=== PATIENT | female | born 1945 | race Caucasian/White ===

== ENCOUNTER 2016-11-07 14:30 | Inpatient (IN) | payer MEDICARE, BC ==
[~2016-11-07] VITALS: Ht 160 cm; Wt 90.9 kg
[~2016-11-07 14:30] MED LIST: AMLO5TAB96 PO; ASPI81TA82 PO; BIOTCAP OR; CQ10 PO; FOLI1TAB PO; HUMUINJ5 SC; LEVO88TA2 PO; LISI10TA PO; NEUR600T PO; OMEP20TA PO; PRAV80
--- NOTE | 2016-11-07 14:55 | PD ---
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 She denies hitting her head or had any loss of consciousness. She denies any chest pains or trouble breathing or other injuries. Modifying Factors: None Associated Signs & Symptoms: Left shoulder and arm, left hip pains after fall Risk Factors: None PFSH Past Medical History Anxiety: Yes Cancer: No Cardiovascular Problems: Yes Diabetes: Yes Endocrine: Yes Gastrointestinal Disorders: Yes GERD: Yes Genitourinary: No Headaches: Yes Hepatitis: No Hiatal Hernia: No Hypertension: Yes Immune Disorder: No Implanted Vascular Access Dvce: Yes Musculoskeletal: Yes Neurologic: Yes Psychiatric: Yes Reproductive: No Respiratory: No Thyroid Disease: Yes ?: Not Past Surgical History Abdominal Surgery: Yes (LAP STEFAN/ LIVER BX, "DOUBLE BALLOON" ENDOSCOPIC ABLATION GI BLEEDERS) Body Medical Devices: CERVICAL HARDWARE, PERMANENT RODS IN LOWER JAW AND NECK Gynecologic Surgery: Yes (D & C) Neurologic Surgery: Yes (ANT. CERVICAL FUS.) Pacemaker: No Other Surgery: Yes Social History Alcohol Use: No Tobacco Use: Yes (12 YEARS AGO) Substance Use: No Allergies-Medications (Allergen,Severity, Reaction): Coded Allergies: Metformin (Verified Allergy, Intermediate, itching, 11/07/16) Reported Meds & Prescriptions Reported Meds & Active Scripts Active Reported [Cq10] PO DAILY Gabapentin 600 Mg Tab 600 Mg PO TID Aspir-81 (Aspirin) 81 Mg Tab 81 Mg PO DAILY Biotin 5000 (Biotin) Cap 1 OR DAILY Lisinopril/Hctz 20/12.5 (HCTZ/Lisinopril) Tab 1 Tab PO DAILY Pravachol 80 Mg Tab (Pravastatin Sod) 80 Mg Tab 80 Mg .XX DAILY Norvasc (Amlodipine Besylate) 5 Mg Tab 5 Mg PO DAILY Omeprazole 20 Mg Tab 20 Mg PO DAILY Folate (Folic Acid) 1 Mg Tab 1 Mg PO DAILY Levothyroxine Sodium (Generic) (Levothyroxine Sodium) 88 Mcg Tab 88 Mcg PO DAILY Humulin R 500 Units/1 ml CAUTION (Insulin Human Regular) 500 Units/1 Ml Inj 1 Units SC ACHS SLIDING SCALE Review of Systems Except as stated in HPI: all other systems reviewed are Neg Physical Exam Narrative GENERAL: Well-developed elderly white female patient currently in moderate distress. Awake and oriented 3. SKIN: Focused skin assessment warm/dry. HEAD: Atraumatic. Normocephalic. EYES: Pupils equal and round. No scleral icterus. No injection or drainage. ENT: No nasal bleeding or discharge. Mucous membranes pink and moist. NECK: Trachea midline. No JVD. Supple. CARDIOVASCULAR: Regular rate and rhythm. No murmur appreciated. RESPIRATORY: No accessory muscle use. Clear to auscultation. Breath sounds equal bilaterally. CHEST: Nontender throughout without deformity or crepitance. No retractions or use of accessory muscles. GASTROINTESTINAL: Abdomen soft, non-tender, nondistended. Hepatic and splenic margins not palpable. Pelvis: Stable, tender palpation at the left groin area. Decreased range of motion of the left hip secondary to pain. EXTREMITIES: No clubbing, cyanosis, or edema. No joint tenderness, effusion, or edema noted. There is tenderness on palpation of the left humeral area with mild deformity notable, neurovascularly intact below injury. MUSCULOSKELETAL: No obvious deformities. No clubbing. No cyanosis. No edema. NEUROLOGICAL: Awake and alert. No obvious cranial nerve deficits. Motor grossly within normal limits. Normal speech. PSYCHIATRIC: Appropriate mood and affect; insight and judgment normal. Data Data Last Documented VS Vital Signs Date Time Temp Pulse Resp B/P Pulse Ox O2 Delivery O2 Flow Rate FiO2 11/07/16 14:58 98 Room Air 11/07/16 14:58 70 20 103/59 Orders Basic Metabolic Panel (Bmp) (11/07/16 14:48) Complete Blood Count With Diff (11/07/16 14:48) Prothrombin Time / Inr (Pt) (11/07/16 14:48) Act Partial Throm Time (Ptt) (11/07/16 14:48) Type And Screen (11/07/16 14:48) Chest, Single Ap (11/07/16 14:48) Pelvis, Ap Only (Routine) (11/07/16 14:48) Iv Access Insert/Monitor (11/07/16 14:48) Ecg Monitoring (11/07/16 14:48) Oximetry (11/07/16 14:48) Oxygen Administration (11/07/16 14:48) Morphine Inj (Morphine Inj) (11/07/16 15:00) Ondansetron Inj (Zofran Inj) (11/07/16 15:00) Sodium Chloride 0.9% Flush (Ns Flush) (11/07/16 15:00) Femur (Ap & Lat/2vws) (11/07/16 14:48) Humerus (Min 2vws) (11/07/16 14:55) Shoulder, Limited(2vws) (11/07/16 14:48) Morphine Inj (Morphine Inj) (11/07/16 16:15) Admit Order (Ed Use Only) (11/07/16 16:56) Labs Laboratory Tests Test 11/07/16 15:20 White Blood Count 6.5 TH/MM3 Red Blood Count 4.46 MIL/MM3 Hemoglobin 12.1 GM/DL Hematocrit 37.0 % Mean Corpuscular Volume 82.9 FL Mean Corpuscular Hemoglobin 27.2 PG Mean Corpuscular Hemoglobin 32.8 % Concent Red Cell Distribution Width 28.1 % Platelet Count 122 TH/MM3 Mean Platelet Volume 8.5 FL Neutrophils (%) (Auto) 60.7 % Lymphocytes (%) (Auto) 22.7 % Monocytes (%) (Auto) 11.4 % Eosinophils (%) (Auto) 4.1 % Basophils (%) (Auto) 1.1 % Neutrophils # (Auto) 3.9 TH/MM3 Lymphocytes # (Auto) 1.5 TH/MM3 Monocytes # (Auto) 0.7 TH/MM3 Eosinophils # (Auto) 0.3 TH/MM3 Basophils # (Auto) 0.1 TH/MM3 CBC Comment AUTO DIFF Prothrombin Time 12.2 SEC Prothromb Time International 1.1 RATIO Ratio Activated Partial 26.8 SEC Thromboplast Time Sodium Level 141 MEQ/L Potassium Level 3.4 MEQ/L Chloride Level 106 MEQ/L Carbon Dioxide Level 27.0 MEQ/L Anion Gap 8 MEQ/L Blood Urea Nitrogen 33 MG/DL Creatinine 1.21 MG/DL Estimat Glomerular Filtration 44 ML/MIN Rate Random Glucose 181 MG/DL Calcium Level 8.4 MG/DL Blood Type O POSITIVE Antibody Screen NEGATIVE MDM Medical Decision Making Medical Screen Exam Complete: Yes Emergency Medical Condition: Yes Medical Record Reviewed: Yes Interpretation(s) Last 24 hours Impressions Pelvis X-Ray 11/07/16 1448 Signed Impressions: Service Date/Time: Monday, November 07, 2016 15:29 - CONCLUSION: Left femoral neck fracture. Darrian Sinclair Jr., MD Chest X-Ray 11/07/16 1448 Signed Impressions: Service Date/Time: Monday, November 07, 2016 15:33 - CONCLUSION: 1. Left humeral neck fracture. 2. No acute intrathoracic process. 3. Tips shunt. Darrian Sinclair Jr., MD Differential Diagnosis Fallrule out fractures versus contusions versus dislocation Narrative Course X-ray shows both a left proximal humeral and left femoral neck fracture. Patient is neurovascularly intact. Case was discussed with Dr. Richards who would like the patient to be medically admitted and Dr. Renner will consult the case tomorrow. Case was discussed with Dr. Mccormick for admission. Diagnosis Primary Impression: Left humeral fracture Additional Impression: Fracture of femoral neck, left Admitting Information Admitting Physician Requests: Admit Misha Dean MD Nov 07, 2016 14:55
[2016-11-07 14:58] VITALS: BP 103/59; PULSE 69; PULSE 70; RESP 18; RESP 20; O2SAT 98
[2016-11-07] MEDS ORDERED: SODIUM CHLORIDE 0.9% FLUSH 10 ML FLUSH IVF PRN (15:00)
[2016-11-07] MEDS ORDERED: MORPHINE SULFATE 4 MG/ML INJ IV ONE (15:00)
[2016-11-07] MEDS ORDERED: ONDANSETRON HCL 4 MG/2 ML VIAL IVP ONE (15:00)
[2016-11-07 15:58] LABS: AUTOMATED NEUTROPHIL # 3.9 TH/MM3 (1.8-7.7); BASOPHIL # 0.1 TH/MM3 (0-0.2); BASOPHIL % 1.1 % (0.0-2.0); EOSINOPHIL # 0.3 TH/MM3 (0-0.4); EOSINOPHIL % 4.1 % (0.0-4.0); LYMPH % 22.7 % (9.0-44.0); LYMPHOCYTE # 1.5 TH/MM3 (1.0-4.8); MEAN CELL VOLUME 82.9 FL (80.0-100.0); MEAN CORPUSCULAR HEMOGLOBIN 27.2 PG (27.0-34.0); MEAN CORPUSCULAR HGB CONC 32.8 % (32.0-36.0); MONO % 11.4 % (0.0-8.0); NEUT % 60.7 % (16.0-70.0); PLATELET COUNT 122 TH/MM3 (150-450); RED BLOOD COUNT 4.46 MIL/MM3 (4.00-5.30); RED CELL DISTRIBUTION WIDTH 28.1 % (11.6-17.2); WHITE BLOOD COUNT 6.5 TH/MM3 (4.0-11.0)
[2016-11-07 16:03] LABS: HEMO FLAGS AUTO DIFF
--- NOTE | 2016-11-07 16:06 | RADRPT ---
EXAM DATE/TIME: 11/07/2016 15:29 [facility] COMPARISON: No previous studies available for comparison. INDICATIONS : Fall. Left hip and shoulder pain. MEDICAL HISTORY : None. SURGICAL HISTORY : Fusion, cervical. ENCOUNTER: Initial ACUITY: 1 day PAIN SCORE: 10/10 LOCATION: Left hip FINDINGS: A single frontal view the pelvis shows an acute fracture involving the left femoral neck. No signific ant angulation or distraction on this single projection. The remaining pelvis is intact. Degenerative changes of the pubic symphysis. Atherosclerotic changes involve the pelvis. CONCLUSION: Left femoral neck fracture. Darrian Sinclair Jr., MD on November 07, 2016 at 16:04 Board Certified Radiologist. This report was verified electronically.
--- NOTE | 2016-11-07 16:07 | RADRPT ---
EXAM DATE/TIME: 11/07/2016 15:33 [facility] COMPARISON: No previous studies available for comparison. INDICATIONS : Fall. Left hip and shoulder pain. MEDICAL HISTORY : None. SURGICAL HISTORY : Fusion, cervical. ENCOUNTER: Initial ACUITY: 1 day PAIN SCORE: 10/10 LOCATION: Left shoulder FINDINGS: A single view of the chest demonstrates the lungs to be symmetrically aerated without evidence of mas s, infiltrate or effusion. The cardiomediastinal contours are unremarkable. There is an acute fractu re involving the left humeral neck. Cervical spinal fusion plate. Tips shunt. CONCLUSION: 1. Left humeral neck fracture. 2. No acute intrathoracic process. 3. Tips shunt. Darrian Sinclair Jr., MD on November 07, 2016 at 16:04 Board Certified Radiologist. This report was verified electronically.
[2016-11-07 16:13] LABS: APTT (PATIENT) 26.8 SEC (24.3-30.1); INTERNATIONAL NORMALIZED RATIO 1.1 RATIO; PROTHROMBIN TIME - PATIENT 12.2 SEC (9.8-11.6)
[2016-11-07] MEDS ORDERED: MORPHINE SULFATE 4 MG/ML INJ IV PUSH ONE (16:15)
--- NOTE | 2016-11-07 16:34 | RADRPT ---
EXAM DATE/TIME: 11/07/2016 15:30 [facility] COMPARISON: No previous studies available for comparison. INDICATIONS : Fall. Left hip and shoulder pain. MEDICAL HISTORY : None. SURGICAL HISTORY : Fusion, cervical. ENCOUNTER: Initial ACUITY: 1 day PAIN SCORE: 10/10 LOCATION: Left hip FINDINGS: There is evidence of an acute subcapital fracture involving the left proximal femur. CONCLUSION: Acute subcapital fracture involving the left proximal femur. Blaise Suarez MD on November 07, 2016 at 16:25 Board Certified Radiologist. This report was verified electronically.
--- NOTE | 2016-11-07 16:35 | RADRPT ---
EXAM DATE/TIME: 11/07/2016 15:35 [facility] COMPARISON: No previous studies available for comparison. INDICATIONS : Fall. Left hip and shoulder pain. MEDICAL HISTORY : None. SURGICAL HISTORY : Fusion, cervical. ENCOUNTER: Initial ACUITY: 1 day PAIN SCORE: 10/10 LOCATION: Left shoulder FINDINGS: There is evidence of an acute comminuted fracture involving the left humeral head and neck. Degenera tive changes are noted involving the left acromioclavicular joint. CONCLUSION: Acute comminuted fracture involving the left humeral head and neck. Blaise Suarez MD on November 07, 2016 at 16:30 Board Certified Radiologist. This report was verified electronically.
[2016-11-07 16:37] LABS: POTASSIUM 3.4 MEQ/L (3.5-5.1)
--- NOTE | 2016-11-07 16:38 | RADRPT ---
EXAM DATE/TIME: 11/07/2016 15:38 [facility] COMPARISON: No previous studies available for comparison. INDICATIONS : Fall. Left hip and shoulder pain. MEDICAL HISTORY : None. SURGICAL HISTORY : Fusion, cervical. ENCOUNTER: Initial ACUITY: 1 day PAIN SCORE: 10/10 LOCATION: Left shoulder FINDINGS: There is an acute communized fracture involving the left humeral head and neck. CONCLUSION: Acute comminuted fracture involving the left humeral head and neck. Blaise Suarez MD on November 07, 2016 at 16:31 Board Certified Radiologist. This report was verified electronically.
[2016-11-07 17:26] LABS: KERATOCYTES OCC (NORMAL); OVALOCYTES 1+ (NORMAL); PLATELET ESTIMATE SMEAR LOW (NORMAL); PLATELET MORPHOLOGY NORMAL (NORMAL); SCAN/DIFF AUTO DIFF CONFIRMED; SPHEROCYTES 1+ (NORMAL)
[2016-11-07] MEDS ORDERED: DEXTROSE 50% IN WATER 50 ML VIAL(D50) IV PRN (17:45)
[2016-11-07] MEDS ORDERED: ONDANSETRON HCL 4 MG/2 ML VIAL IVP PRN (17:45)
[2016-11-07] MEDS ORDERED: GLUCAGON 1 MG/ML VIAL OTHER PRN (17:45)
[2016-11-07] MEDS ORDERED: TEMAZEPAM 15 MG CAP PO PRN (17:45)
[2016-11-07] MEDS ORDERED: ACETAMINOPHEN/HYDROcodone 325 MG/5 MG TAB PO PRN (17:45)
[2016-11-07] MEDS ORDERED: SODIUM CHLORIDE 0.9% FLUSH 10 ML FLUSH IV FLUSH PRN (17:45)
[2016-11-07] MEDS ORDERED: ACETAMINOPHEN 325 MG TAB PO PRN ×2 (17:45)
[2016-11-07] MEDS ORDERED: RESP: ALBUTEROL 2.5 MG/IPRATROPIUM 0.5 MG NEB (PRN) NEB (17:45)
[2016-11-07] MEDS ORDERED: MAGNESIUM HYDROXIDE SUSP 30 ML CUP PO PRN (17:45)
[2016-11-07] MEDS ORDERED: NALOXONE HCL 0.4 MG/ML AMP IV PRN (17:45)
--- NOTE | 2016-11-07 17:51 | HHI.HP ---
HPI Service [facility]ists Primary Care Physician [place] MD Admission Diagnosis left humeral fracture and hip fracture Diagnoses: (1) Fracture of femoral neck, left (2) Left humeral fracture Chief Complaint: Left shoulder and left hip pain Travel History International Travel<30 Days: No Contact w/Intl Traveler <30 Da: No Traveled to Known Affected Are: No History of Present Illness 71-year-old female with a history of diabetes type 2, presented to the ED for evaluation of an acute onset of left hip and left shoulder pain status post mechanical fall. 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 In order to avoid sneezing in the face of another patient ,she turned around on her left side however in the process, she lost her balance and felt on her left side hitting her left shoulder and left hip without any trauma to her head or any associated loss of consciousness. She automatically felt severe pain to will left hip and left shoulder which were both repeated 8/10 in intensity. She has no chest pain or shortness of breath. Review of Systems Except as stated in HPI: all other systems reviewed are Neg Past Family Social History Past Medical History Anxiety: Yes Cardiovascular Problems: Yes Diabetes: Yes GERD: Yes Hypertension: Yes Past Surgical History Abdominal Surgery: Yes (LAP STEFAN/ LIVER BX, "DOUBLE BALLOON" ENDOSCOPIC ABLATION GI BLEEDERS) Body Medical Devices: CERVICAL HARDWARE, PERMANENT RODS IN LOWER JAW AND NECK Gynecologic Surgery: Yes (D & C) Neurologic Surgery: Yes (ANT. CERVICAL FUS.) Other Surgery: Yes Reported Medications [Cq10] PO DAILY Gabapentin 600 Mg Tab 600 Mg PO TID Aspir-81 (Aspirin) 81 Mg Tab 81 Mg PO DAILY Biotin 5000 (Biotin) Cap 1 OR DAILY Lisinopril/Hctz 20/12.5 (HCTZ/Lisinopril) Tab 1 Tab PO DAILY Pravachol 80 Mg Tab (Pravastatin Sod) 80 Mg Tab 80 Mg .XX DAILY Norvasc (Amlodipine Besylate) 5 Mg Tab 5 Mg PO DAILY Omeprazole 20 Mg Tab 20 Mg PO DAILY Folate (Folic Acid) 1 Mg Tab 1 Mg PO DAILY Levothyroxine Sodium (Generic) (Levothyroxine Sodium) 88 Mcg Tab 88 Mcg PO DAILY Humulin R 500 Units/1 ml CAUTION (Insulin Human Regular) 500 Units/1 Ml Inj 1 Units SC ACHS SLIDING SCALE Allergies: Coded Allergies: Metformin (Verified Allergy, Intermediate, itching, 11/07/16) Family History Mother had diabetes type 2 Social History Alcohol Use: No Tobacco Use: Yes (12 YEARS AGO) Substance Use: No Physical Exam Vital Signs Vital Signs Date Time Temp Pulse Resp B/P Pulse Ox O2 Delivery O2 Flow Rate FiO2 11/07/16 14:58 98 Room Air 11/07/16 14:58 70 20 103/59 98 Room Air 11/07/16 14:58 69 18 103/59 98 Room Air 11/07/16 14:39 78 24 97 Physical Exam GENERAL: This is a well-nourished, well-developed patient, in no apparent distress. SKIN: No rashes, ecchymoses or lesions. Cool and dry. HEAD: Atraumatic. Normocephalic. No temporal or scalp tenderness. EYES: Pupils equal round and reactive. Extraocular motions intact. No scleral icterus. No injection or drainage. ENT: Nose without bleeding, purulent drainage or septal hematoma. Throat without erythema, tonsillar hypertrophy or exudate. Uvula midline. Airway patent. NECK: Trachea midline. No JVD or lymphadenopathy. Supple, nontender, no meningeal signs. CARDIOVASCULAR: Regular rate and rhythm without murmurs, gallops, or rubs. RESPIRATORY: Clear to auscultation. Breath sounds equal bilaterally. No wheezes , rales, or rhonchi. GASTROINTESTINAL: Abdomen soft, non-tender, nondistended. No hepato-splenomegaly , or palpable masses. No guarding. MUSCULOSKELETAL: Extremities without clubbing, cyanosis, or edema. Left hip tender to palpation with limited range of motion; left shoulder tender to palpation with limited range of motion NEUROLOGICAL: Awake and alert. Cranial nerves II through XII intact. Motor and sensory grossly within normal limits. Five out of 5 muscle strength in all muscle groups. Normal speech. Laboratory Laboratory Tests Test 11/07/16 15:20 White Blood Count 6.5 Red Blood Count 4.46 Hemoglobin 12.1 Hematocrit 37.0 Mean Corpuscular Volume 82.9 Mean Corpuscular Hemoglobin 27.2 Mean Corpuscular Hemoglobin 32.8 Concent Red Cell Distribution Width 28.1 Platelet Count 122 Mean Platelet Volume 8.5 Neutrophils (%) (Auto) 60.7 Lymphocytes (%) (Auto) 22.7 Monocytes (%) (Auto) 11.4 Eosinophils (%) (Auto) 4.1 Basophils (%) (Auto) 1.1 Neutrophils # (Auto) 3.9 Lymphocytes # (Auto) 1.5 Monocytes # (Auto) 0.7 Eosinophils # (Auto) 0.3 Basophils # (Auto) 0.1 CBC Comment AUTO DIFF Differential Comment AUTO DIFF CONFIRMED Platelet Estimate LOW Platelet Morphology Comment NORMAL Spherocytes 1+ Ovalocytes 1+ Keratocytes OCC Prothrombin Time 12.2 Prothromb Time International 1.1 Ratio Activated Partial 26.8 Thromboplast Time Sodium Level 141 Potassium Level 3.4 Chloride Level 106 Carbon Dioxide Level 27.0 Anion Gap 8 Blood Urea Nitrogen 33 Creatinine 1.21 Estimat Glomerular Filtration 44 Rate Random Glucose 181 Calcium Level 8.4 Blood Type O POSITIVE Antibody Screen NEGATIVE Result Diagram: 11/07/16 1520 11/07/16 1520 Imaging Last Impressions Pelvis X-Ray 11/07/168 Signed Impressions: Service Date/Time: Monday, November 07, 2016 15:29 - CONCLUSION: Left femoral neck fracture. Darrian Sinclair Jr., MD Chest X-Ray 11/07/168 Signed Impressions: Service Date/Time: Monday, November 07, 2016 15:33 - CONCLUSION: 1. Left humeral neck fracture. 2. No acute intrathoracic process. 3. Tips shunt. Darrian Sinclair Jr., MD Assessment and Plan Problem List: (1) Fracture of femoral neck, left ICD Code: S72.002A Status: Acute (2) Left humeral fracture ICD Code: S42.302A Status: Acute (3) ARF (acute renal failure) ICD Code: N17.9 Status: Acute (4) Hypokalemia ICD Code: E87.6 Status: Acute (5) DM (diabetes mellitus) ICD Code: E11.9 Status: Acute Assessment and Plan 71-year-old female with Left femoral neck fracture Left humeral neck fracture Pelvic x-ray and chest x-ray noted a review by me with finding of both left femoral neck fracture and left humeral neck fracture Orthopedic surgery consultation pending for evaluation for open reduction internal fixation Parenteral pain management, antiemetic when necessary PT consult to treat and eval post procedure DVT prophylaxis post procedure per orthopedic surgery Acute renal failure Prerenal secondary to dehydration Gentle IV fluid hydrations, and avoid all nephrotoxic drugs and monitor BUN and creatinine Hypokalemia Replace electrolyte Diabetes type 2 Start sliding scale insulin Other chronic medical conditions Resume outpatient medications DVT prophylaxis: Bilateral SCDs Code Status Full code Discussed Condition With Patient, , ED physician Physician Certification 2 Midnight Certification Type: Admission for Inpatient Services Order for Inpatient Services The services are ordered in accordance with Medicare regulations or non- Medicare payer requirements, as applicable. In the case of services not specified as inpatient-only, they are appropriately provided as inpatient services in accordance with the 2-midnight benchmark. Estimated LOS (days): 2 days is the estimated time the patient will need to remain in the hospital, assuming treatment plan goals are met and no additional complications. Post-Hospital Plan: Not yet determined Mitesh Mccormick MD Nov 07, 2016 17:51
[2016-11-07] MEDS ORDERED: LEVO100T5 PO (17:52)
[2016-11-07] MEDS ORDERED: FOLI1TAB6 (17:52)
[2016-11-07] MEDS ORDERED: XIFA550T4 PO (17:52)
[2016-11-07] MEDS ORDERED: OMEP40CA2 PO (17:52)
[2016-11-07] MEDS ORDERED: BUME2TAB PO (17:52)
[2016-11-07] MEDS ORDERED: LISI-515 PO (17:52)
[2016-11-07] MEDS ORDERED: HUMUINJ5 SQ (17:52)
[2016-11-07] MEDS ORDERED: CALC0.25 PO (17:52)
[2016-11-07] MEDS ORDERED: POTASSIUM CHLORIDE 10 MEQ CONTROLLED RELEASE TAB PO ONE (18:15)
[2016-11-07] MEDS: SODIUM CHLOR 0.9% 1000 ML INJ 1,000 ML IV SCH (19:15)
[2016-11-07 19:18] VITALS: BP 172/61; PULSE 84; RESP 18
[2016-11-07] MEDS: INSULIN ASPART SUPPLEMENTAL SCALE SQ SCH (21:00)
[2016-11-07] MEDS: SODIUM CHLORIDE 0.9% FLUSH 10 ML FLUSH IV FLUSH SCH (21:00)
[2016-11-07 21:44] VITALS: BP 176/74; PULSE 78; RESP 22; O2SAT 96
[2016-11-07] MEDS: ACETAMINOPHEN/HYDROcodone 325 MG/7.5 MG TAB PO PRN (22:04)
[2016-11-07] MEDS: MORPHINE SULFATE 4 MG/ML INJ IV PRN (23:18)
[2016-11-08] VITALS: BP 135/62; PULSE 75; RESP 20; TEMP 98.4; O2SAT 95
[2016-11-08] MEDS: ACETAMINOPHEN/HYDROcodone 325 MG/7.5 MG TAB PO PRN ×2 (02:42→07:16)
[2016-11-08 04:00] VITALS: BP_SYST 170; PULSE 87; RESP 20; TEMP 98.8; O2SAT 90
[2016-11-08] MEDS: LEVOTHYROXINE SODIUM 100 MCG TAB PO SCH (05:31)
[2016-11-08] MEDS: MORPHINE SULFATE 4 MG/ML INJ IV PRN ×2 (05:32→10:16)
--- NOTE | 2016-11-08 06:53 | PD.ORT.PN ---
Subjective Subjective Remarks Shun landry female who is a diabetic with neuropathy and gait instability. She states she was at home and sneezed. Once she sneezed she lost her balance and fell onto her left side. She has left shoulder and hip pain. X-rays confirm left proximal humerus and left femoral neck fracture. No other associated injuries Objective Vitals Vital Signs Date Time Temp Pulse Resp B/P Pulse Ox O2 Delivery O2 Flow Rate FiO2 11/08/16 00:00 98.4 75 20 135/62 95 11/07/16 21:44 78 22 176/74 96 Room Air 11/07/16 19:18 84 18 172/61 11/07/16 14:58 98 Room Air 11/07/16 14:58 70 20 103/59 98 Room Air 11/07/16 14:58 69 18 103/59 98 Room Air 11/07/16 14:39 78 24 97 Result Diagram: 11/07/16 1520 11/07/16 1520 Other Results Laboratory Tests Test 11/07/16 15:20 Prothrombin Time 12.2 SEC (9.8-11.6) Prothromb Time International 1.1 RATIO Ratio Imaging Last 24 hours Impressions Humerus X-Ray 11/07/16 1455 Signed Impressions: Service Date/Time: Monday, November 07, 2016 15:38 - CONCLUSION: Acute comminuted fracture involving the left humeral head and neck. Blaise Suarez MD Shoulder X-Ray 11/07/16 7118 Signed Impressions: Service Date/Time: Monday, November 07, 2016 15:35 - CONCLUSION: Acute comminuted fracture involving the left humeral head and neck. Blaise Suarez MD Pelvis X-Ray 11/07/16 215 Signed Impressions: Service Date/Time: Monday, November 07, 2016 15:29 - CONCLUSION: Left femoral neck fracture. Darrian Sinclair Jr., MD Femur X-Ray 11/07/161447 Signed Impressions: Service Date/Time: Monday, November 07, 2016 15:30 - CONCLUSION: Acute subcapital fracture involving the left proximal femur. Blaise Suarez MD Chest X-Ray 11/07/16 1448 Signed Impressions: Service Date/Time: Monday, November 07, 2016 15:33 - CONCLUSION: 1. Left humeral neck fracture. 2. No acute intrathoracic process. 3. Tips shunt. Darrian Sinclair Jr., MD Objective Remarks Right upper extremity: Full range of motion neurovascularly intact Left upper extremity: Pain to palpation of her shoulder. No tenderness of elbow wrist or fingers. She has full extension and auction of all fingers. She has intact sensation and good capillary refills. Right lower extremity: Full range of motion and neurovascularly intact Left lower extremity: Pain to palpation over hip. The pain did knee or ankle range of motion. She has intact sensation distally with good capillary refills. She has strong dorsiflexion plantar flexion of foot Assessment & Plan Assessment and Plan Left proximal humerus fracture minimally displaced Conservative measures with nonsurgical treatment at this time. She will be fitted for a sling and swath. She'll be nonweightbearing and will be in sling and swath at all time with no range of motion. Follow-up x-rays will be performed in 10-14 days to evaluate continued alignment of fracture. Left femoral neck fracture Surgery will be performed today for left hip hemiarthroplasty. Nothing by mouth Sign consents Leland Li Jr. Nov 08, 2016 06:53
[2016-11-08] MEDS ORDERED: TRANEXAMIC ACID INJ 1,275 MG in SODIUM CHLORIDE 0.9% INJ 100 ML IV ONE (07:00)
[2016-11-08] MEDS: INSULIN ASPART SUPPLEMENTAL SCALE SQ SCH ×4 (07:00→21:00)
[2016-11-08] MEDS: SODIUM CHLOR 0.9% 1000 ML INJ 1,000 ML IV SCH ×2 (08:45→23:01)
[2016-11-08] MEDS ORDERED: LISINOPRIL 20 MG TAB PO SCH (09:00)
[2016-11-08] MEDS ORDERED: BUMETANIDE 1 MG TAB PO SCH (09:00)
[2016-11-08] MEDS: CALCITRIOL 0.25 MCG CAP PO SCH (09:00)
[2016-11-08] MEDS: RIFAXIMIN 550 MG TAB PO SCH (09:00)
[2016-11-08] MEDS: PANTOPRAZOLE SOD 40 MG DELAYED RELEASE TAB PO SCH (09:00)
[2016-11-08] MEDS: SODIUM CHLORIDE 0.9% FLUSH 10 ML FLUSH IV FLUSH SCH (09:00)
[2016-11-08 09:02] VITALS: BP 147/60; PULSE 80; RESP 17; TEMP 98.3; O2SAT 91
--- NOTE | 2016-11-08 09:35 | MB ---
cc: SHIRA DEL VALLE DATE OF CONSULTATION: 11/08/2016 REASON FOR CONSULTATION: Left proximal humerus fracture and left femoral neck fracture. CONSULTING PHYSICIAN: Dr. Mitesh Mccormick. PRIMARY CARE PHYSICIAN Dr. Park. HISTORY: Alena is 71 year-old female who has a history of type 2 diabetes. She was at a physicians office today when she needed to sneeze, she turned to sneeze and lost her balance. She fell and landed on her left side. She had immediate left shoulder pain and left hip pain. She is unable to stand or ambulate. She presented to the emergency room where x-rays revealed a left proximal humerus fracture and a left femoral neck fracture. She is currently awake, alert on the orthopic floor. Her is bedside. Pain is worse with movement, it is improved with rest. She denies any dizziness, syncope or loss of consciousness. PAST MEDICAL HISTORY/ILLNESSES: 1. Hypertension. 2. Anxiety 3. Diabetes PAST SURGICAL HISTORY: 1. Cholecystectomy. 2. Liver biopsy. 3. Endoscopic ablation. 4. Dilation and curettage. 5. Anterior cervical fusion. MEDICATIONS: 1. Gabapentin 2. Aspirin 3. Bioten 4. Lisinopril 5. Hydrochlorothiazide 6. Pravachol 7. Norvasc 8. Omeprazole 9. Levothyroxine 10. Humulin ALLERGIES [facility]FORMIN FAMILY HISTORY: Positive for diabetes in her mother. SOCIAL HISTORY: The patient denies alcohol or drug use. She quit smoking 12 years ago. REVIEW OF SYSTEMS The patient denies headache, visual changes, neck pain, chest pain, shortness of breath, abdominal pain, nausea and vomiting or recent weight loss. She complains of left shoulder and left hip pain. PHYSICAL EXAMINATION: IN GENERAL: The patient is a pleasant 71 year-old female in no acute distress. She is awake and alert, she is alert and oriented times three. She appears mildly overweight. VITAL SIGNS: Temperature 98.4. Pulse 75, Respirations 20, Blood pressure 135/62. O2 saturations is 95% on room air. HEAD, EYES, EARS, NOSE, AND THROAT: Normocephalic. Pupils are equal. NECK: The neck is soft, nontender, trachea is midline. ABDOMEN: The abdomen is soft, nontender, nondistended. EXTREMITIES: Examination of the left arm reveals pain with any shoulder motion, she has mild swelling around the shoulder. She has no tenderness of her elbow, wrist or fingers, sensation is intact in all fingers, radial pulses are palpable. Skin is intact. Examination of right arm reveals no pain with shoulder, elbow and wrist motion. The skin is intact, radial pulses are palpable. Sensation was intact in all fingers. Examination of the right leg reveals no pain with hip, knee or ankle motions. Skin is intact, dorsalis pedis pulse is palpable. Skin is intact. Examination of the left leg reveals pain with any hip motion. She has no tension on her knee, tibia or ankle. Skin is intact, dorsalis pedis pulse is palpable. She has mildly diminished sensation of both feet secondary to peripheral neuropathy. RADIOLOGIC: X-rays of left shoulder reviewed, x-rays revealed a minimally displaced left proximal humerus fracture, the glenohumeral joint is reduced. X-ray of the left hip were reviewed. The x-rays revealed a displaced left femoral neck fracture. IMPRESSION: 1. Diabetes. 2. Osteoporosis. 3. Left proximal humerus fracture. 4. Left femoral neck fracture. PLAN: Treatment options were discussed with the patient. At this point I would recommend nonsurgical treatment of the left proximal humerus, this was aligned very well. She will be going into a sling and swath. She should not do any lifting or activities with her left shoulder at this time. I would recommend a left hip hemiarthroplasty. Risks of surgery include, bleeding, infection, injuries to arteries, nerves or blood vessels. Hip dislocation and leg length discrepancy, Femoral fracture as well as medical complications including blood clot, stroke, heart attack and . All questions were answered. I will plan on surgery today. A mid-level provider in my office (nurse practitioner or physician library media assistant) may see this patient on follow-up visits and continue to implement the objectives of this plan including: Starting or adjusting medications, injections , cast application, orthotics, brace application, physical therapy, radiological studies (including x-ray, MRI, CT, ultrasound, bone scan), vascular studies, neurologic studies, specialist consultation, and proceeding with surgical management, as appropriate. MD JEAN Thurman/kris /7:04 AM /9:16 AM KARLEY
[2016-11-08] MEDS ORDERED: ePHEDrine/NS 25 MG/5 ML SYR IV ONE (09:42)
[2016-11-08] MEDS ORDERED: PROPOFOL 200 MG/20 ML AMP IV ONE (09:42)
[2016-11-08] MEDS ORDERED: PHENYLEPH/NS 1000 MCG/10 ML SYR IV ONE (09:43)
[2016-11-08] MEDS ORDERED: NEOSTIGMINE 3 MG/3 ML SYR IV ONE (09:43)
[2016-11-08] MEDS ORDERED: ONDANSETRON HCL 4 MG/2 ML VIAL IV PUSH ONE (09:44)
--- NOTE | 2016-11-08 10:29 | HHI.PR ---
Objective Vitals Vital Signs Date Time Temp Pulse Resp B/P Pulse Ox O2 Delivery O2 Flow Rate FiO2 11/08/16 09:02 98.3 80 17 147/60 91 11/08/16 04:00 98.8 87 20 170/ 90 11/08/16 00:00 98.4 75 20 135/62 95 11/07/16 21:44 78 22 176/74 96 Room Air 11/07/16 19:18 84 18 172/61 11/07/16 14:58 98 Room Air 11/07/16 14:58 70 20 103/59 98 Room Air 11/07/16 14:58 69 18 103/59 98 Room Air 11/07/16 14:39 78 24 97 Result Diagram: 11/07/16 1520 11/07/16 1520 A/P Problem List: (1) Fracture of femoral neck, left ICD Code: S72.002A Status: Acute (2) Left humeral fracture ICD Code: S42.302A Status: Acute (3) ARF (acute renal failure) ICD Code: N17.9 Status: Acute (4) Hypokalemia ICD Code: E87.6 Status: Acute (5) DM (diabetes mellitus) ICD Code: E11.9 Status: Acute Yoandy Scott MD Nov 08, 2016 10:29
[2016-11-08 10:40] LABS: AUTOMATED NEUTROPHIL # 5.3 TH/MM3 (1.8-7.7); BASOPHIL # 0.1 TH/MM3 (0-0.2); BASOPHIL % 1.4 % (0.0-2.0); EOSINOPHIL # 0.3 TH/MM3 (0-0.4); EOSINOPHIL % 3.3 % (0.0-4.0); HEMATOCRIT 35.6 % (35.0-46.0); LYMPH % 14.4 % (9.0-44.0); LYMPHOCYTE # 1.1 TH/MM3 (1.0-4.8); MEAN CELL VOLUME 83.4 FL (80.0-100.0); MEAN CORPUSCULAR HEMOGLOBIN 27.6 PG (27.0-34.0); MEAN CORPUSCULAR HGB CONC 33.1 % (32.0-36.0); MONO % 11.7 % (0.0-8.0); NEUT % 69.2 % (16.0-70.0); PLATELET COUNT 110 TH/MM3 (150-450); RED BLOOD COUNT 4.27 MIL/MM3 (4.00-5.30); RED CELL DISTRIBUTION WIDTH 28.4 % (11.6-17.2); WHITE BLOOD COUNT 7.7 TH/MM3 (4.0-11.0)
[2016-11-08 10:53] LABS: HEMO FLAGS AUTO DIFF
[2016-11-08 10:57] LABS: ALT (GPT) 31 U/L (10-53); ANION GAP 8 MEQ/L (5-15); AST (GOT) 59 U/L (15-37); BICARBONATE 23.1 MEQ/L (21.0-32.0); BLOOD UREA NITROGEN 39 MG/DL (7-18); CHLORIDE 110 MEQ/L (98-107); GLOMERULAR FILTRATION RATE 39 ML/MIN (>89); POTASSIUM 4.8 MEQ/L (3.5-5.1); SODIUM (NA) 141 MEQ/L (136-145)
[2016-11-08 10:59] LABS: ALKALINE PHOSPHATASE 127 U/L (45-117); TOTAL BILIRUBIN ADULT 1.8 MG/DL (0.2-1.0)
[2016-11-08] MEDS ORDERED: INSULIN ASPART SUPPLEMENTAL SCALE SQ SCH (11:00)
[2016-11-08 11:20] LABS: SPHEROCYTES 1+ (NORMAL)
[2016-11-08 11:21] LABS: OVALOCYTES 1+ (NORMAL); PLATELET ESTIMATE SMEAR LOW (NORMAL); PLATELET MORPHOLOGY NORMAL (NORMAL)
[2016-11-08 11:22] LABS: SCAN/DIFF AUTO DIFF CONFIRMED
[2016-11-08] MEDS ORDERED: GENTAMICIN SULFATE 80 MG/2 ML VIAL ONE (12:42)
[2016-11-08] MEDS ORDERED: ceFAZolin 2 GM PREMIX 50 ML ONE (12:48)
[2016-11-08] MEDS ORDERED: VANCOMYCIN HCL 1000 MG VIAL ONE (12:48)
[2016-11-08] MEDS ORDERED: diphenhydrAMINE HCL 50 MG/ML VIAL ONE (13:01)
--- NOTE | 2016-11-08 13:50 | HHI.PR ---
Subjective Remarks Follow up orthopedic injury. Currently nothing by mouth for surgery. Complains of left hip pain. Seen with discussed with RN Objective Vitals Vital Signs Date Time Temp Pulse Resp B/P Pulse Ox O2 Delivery O2 Flow Rate FiO2 11/08/16 09:02 98.3 80 17 147/60 91 11/08/16 04:00 98.8 87 20 170/ 90 11/08/16 00:00 98.4 75 20 135/62 95 11/07/16 21:44 78 22 176/74 96 Room Air 11/07/16 19:18 84 18 172/61 11/07/16 14:58 98 Room Air 11/07/16 14:58 70 20 103/59 98 Room Air 11/07/16 14:58 69 18 103/59 98 Room Air 11/07/16 14:39 78 24 97 Result Diagram: 11/08/16 0916 11/08/16 0916 Imaging Last Impressions Humerus X-Ray 11/07/16 1455 Signed Impressions: Service Date/Time: Monday, November 07, 2016 15:38 - CONCLUSION: Acute comminuted fracture involving the left humeral head and neck. Blaise Suarez MD Shoulder X-Ray 11/07/16 144 Signed Impressions: Service Date/Time: Monday, November 07, 2016 15:35 - CONCLUSION: Acute comminuted fracture involving the left humeral head and neck. Blaise Suarez MD Pelvis X-Ray 11/07/161447 Signed Impressions: Service Date/Time: Monday, November 07, 2016 15:29 - CONCLUSION: Left femoral neck fracture. Darrian Sinclair Jr., MD Femur X-Ray 11/07/16 144 Signed Impressions: Service Date/Time: Monday, November 07, 2016 15:30 - CONCLUSION: Acute subcapital fracture involving the left proximal femur. Blaise Suarez MD Chest X-Ray 11/07/16 144 Signed Impressions: Service Date/Time: Monday, November 07, 2016 15:33 - CONCLUSION: 1. Left humeral neck fracture. 2. No acute intrathoracic process. 3. Tips shunt. Darrian Sinclair Jr., MD Objective Remarks Well-developed, obese in mild distress due to pain Lungs are clear equal and responsive Regular rate and rhythm with systolic murmur best heard at left sternal border Abdomen soft nontender extremities tender left hip. Left upper extremity in a sling. Neurovascularly intact Alert and oriented nonfocal A/P Problem List: (1) Fracture of femoral neck, left ICD Code: S72.002A Status: Acute (2) Left humeral fracture ICD Code: S42.302A Status: Acute (3) ARF (acute renal failure) ICD Code: N17.9 Status: Acute (4) Hypokalemia ICD Code: E87.6 Status: Acute (5) DM (diabetes mellitus) ICD Code: E11.9 Status: Acute Assessment and Plan 71-year-old female with Left femoral neck fracture Left humeral neck fracture Pelvic x-ray and chest x-ray noted a review by me with finding of both left femoral neck fracture and left humeral neck fracture Orthopedic surgery for repair of left femur neck fracture. Left humeral neck fracture recommended conservative management Parenteral pain management with IV morphine and Lortab, antiemetic when necessary PT consult to treat and eval post procedure DVT prophylaxis post procedure per orthopedic surgery Acute renal failure. Improving obtain CK Prerenal secondary to dehydration Gentle IV fluid hydrations, and avoid all nephrotoxic drugs and monitor BUN and creatinine. Hold Bumex and lisinopril for now Hypokalemia Replace electrolyte Diabetes type 2 Continue sliding scale insulin Chronic medical conditions of hypertension, GERD and hypothyroidism. Stable continue outpatient medications as appropriate DVT prophylaxis: Bilateral SCDs. Will need pharmacological prophylaxis postoperatively Yoandy Scott MD Nov 08, 2016 13:50
--- NOTE | 2016-11-08 13:54 | HHI.DCPOC ---
Discharge Care Plan Diagnosis: (1) Fracture of femoral neck, left (2) Left humeral fracture Your Health Problems Are: Difficulty with ADL Exercise Tolerance Goals to Promote Your Health * To prevent worsening of your condition and complications * To maintain your health at the optimal level Directions to Meet Your Goals Take your medications as prescribed Follow your dietary instruction Follow activity as directed Keep your appointments as scheduled Take your immunizations and boosters as scheduled If your symptoms worsen call your PCP, if no PCP go to Urgent Care Center or Emergency Room Smoking is Dangerous to Your Health. Avoid second hand smoke Call the 24-hour hour crisis hotline for domestic abuse at Yoandy Scott MD Nov 08, 2016 13:54
--- NOTE | 2016-11-08 14:20 | PD.OP ---
cc: Vazquez Renner MD Operative Report Date of Surgery: Nov 08, 2016 Preoperative Diagnosis: Displaced left femoral neck fracture, nondisplaced left proximal humerus fracture Postoperative Diagnosis: Procedure: Left hip hemiarthroplasty Anesthesia: Gen. Surgeon: Vazquez Renner Siderographist(s): Donald Li PA-C The surgical procedure was assisted by my physician refinery operator assistant. My P.A. presence was necessary throughout this case for the manipulation and positioning of the surgical extremity. My P.A. was assisting me throughout the duration of this procedure. The skill set of a physician refinery operator assistant was medically necessary to complete this procedure. During the surgical case the director surgical was working at the back table and the physician refinery operator assistant was directly assisting me. Operation and Findings: PLAN OF ACTIVITY Weight bear as tolerated left leg, nonweightbearing left arm. IMPLANTS USED DePuy Corail size 12 stem with size [47] bipolar head and [+5] neck. DRAIN: 7 mm Hal-Schofield drain DETAILS OF PROCEDURE This patient was brought into the operating room and placed on the OR table. The patient was given anesthesia. The patient received IV antibiotics. The patient was then placed in lateral decubitus position. Care was taken to avoid further injury to the left proximal humerus fracture. The hip and leg were prepped with alcohol, followed by Hibiclens and draped in a usual sterile fashion. Clean air was used for this procedure. Time out procedure was performed. The procedure began with a 5 inch incision over the posterolateral hip. The subcutaneous tissue was dissected with the Bovie. The iliotibial band were split in line with fibers. The Charnley retractor was placed. The piriformis and external rotators were released from the femur and tagged with a #1 Vicryl suture. The capsule is now incised and tagged with #1 Vicryl. The femoral neck fracture was now visualized. A corkscrew was now used to remove the femoral head. The femoral head was sized and measured. Soft tissue was now protected. The hip skid was placed underneath the femoral neck. An oscillating saw was used to make a femoral neck cut. At this point attention was turned to preparation of the proximal femur. A box osteotome was used to remove the lateral cortex of the femoral neck. The T- handle reamer was used to open the femoral canal. Next, the canal was broached. A lateralizing reamer was used to help lateralize the prosthesis. At this point a trial head and neck were placed. The hip was reduced. The patient was found to have excellent stability with good range of motion. Trial components were removed. Soft tissue and bone were thoroughly irrigated. A Corail stem was now opened. The stem was now impacted into the proximal femur. Care was taken to keep appropriate anteversion. The head and neck were now impacted onto the stem. The hip was again reduced. The hip was found to have good range of motion and good stability. Leg lengths were clinically equal. The wound was thoroughly irrigated. The capsule, piriformis and iliotibial band were closed with #1 Vicryl. Subcutaneous tissue was closed with 3-0 Vicryl. The skin was closed with orville. A sterile dressing was applied with Primapore. The patient was placed into a knee immobilizer. The patient was awakened and transferred to the recovery room in stable condition. Needle and sponge counts were correct. Vazquez Renner MD Nov 08, 2016 14:20
--- NOTE | 2016-11-08 14:20 | EKG ---
Date Performed: 11/07/2016 Time Performed: 14:40:19 PTAGE: 71 years EKG: NORMAL Sinus rhythm NONSPECIFIC T-WAVE ABNORMALITY BORDERLINE ECG NO PREVIOUS TRACING DOCTOR: Bharat Bran Interpretating Date/Time 11/08/2016 14:19:35
[2016-11-08] MEDS ORDERED: MORPHINE SULFATE 4 MG/ML INJ IV PUSH PRN (14:30)
[2016-11-08] MEDS ORDERED: ERGOCALCIFEROL (VIT D2) 50,000 UNIT CAP PO ONE (14:30)
[2016-11-08] MEDS ORDERED: SODIUM CHLORIDE 0.9% FLUSH 5 ML FLUSH IVF PRN (14:30)
[2016-11-08] MEDS ORDERED: Post-op Orders (for Pharmacy) MISC XX ONE (14:42)
[2016-11-08] MEDS ORDERED: fentaNYL CITRATE 250 MCG/5 ML AMP ONE (14:52)
[2016-11-08] MEDS ORDERED: *morphine SULFATE 8 MG/ML PERIprocedure ONLY ONE (15:19)
[2016-11-08] MEDS ORDERED: *LABETALOL HCL 100 MG/20 ML VIAL PERIprocedural Use ONLY ONE (15:35)
[2016-11-08 15:39] LABS: CREATINE KINASE 92 U/L (26-192)
[2016-11-08] MEDS ORDERED: DO NOT ADM ANY ANTICOAGULANT DRUGS PRN (16:15)
--- NOTE | 2016-11-08 16:48 | RADRPT ---
EXAM DATE/TIME: 11/08/2016 14:54 [facility] COMPARISON: No previous studies available for comparison. INDICATIONS : Post OP left hip. MEDICAL HISTORY : None. SURGICAL HISTORY : None. ENCOUNTER: Subsequent ACUITY: 1 day PAIN SCORE: 0/10 LOCATION: Bilateral chest FINDINGS: Multiple views of the pelvis and left hip reveal a total hip prosthesis in good position. No fracture or dislocation. Surgical drain is noted overlying the greater trochanter. Surgical clips overlie the soft tissues. The remaining bony pelvis is unremarkable. Atherosclerotic change is noted. CONCLUSION: Left hip prosthesis in good position. Darrian Sinclair Jr., MD on November 08, 2016 at 16:46 Board Certified Radiologist. This report was verified electronically.
[2016-11-08] MEDS: CHOLECALCIFEROL (VIT D3) 5000 UNIT CAP PO SCH ×2 (20:35→21:01)
[2016-11-08] MEDS: ceFAZolin 2 GM PREMIX 50 ML IV SCH (20:37)
[2016-11-08] MEDS: SODIUM CHLORIDE 0.9% FLUSH 5 ML FLUSH IVF SCH (21:00)
[2016-11-08] MEDS ORDERED: diphenhydrAMINE HCL 25 MG CAP PO ONE (21:15)
[2016-11-08 21:30] VITALS: BP 153/64; PULSE 82; RESP 20; TEMP 98.1; O2SAT 91
[2016-11-09 00:15] VITALS: BP 140/65; PULSE 88; RESP 20; TEMP 97.7; O2SAT 92
[2016-11-09] MEDS: ceFAZolin 2 GM PREMIX 50 ML IV SCH ×2 (01:02→06:01)
[2016-11-09 05:00] VITALS: BP 145/62; PULSE 86; RESP 21; TEMP 98.1; O2SAT 93
[2016-11-09] MEDS: LEVOTHYROXINE SODIUM 100 MCG TAB PO SCH (06:02)
[2016-11-09] MEDS: ACETAMINOPHEN/HYDROcodone 325 MG/7.5 MG TAB PO PRN ×3 (06:10→14:43)
[2016-11-09] MEDS: INSULIN ASPART SUPPLEMENTAL SCALE SQ SCH ×4 (06:19→21:50)
--- NOTE | 2016-11-09 07:26 | PD.ORT.PN ---
Subjective Subjective Remarks POD 1 s/p Left Hip Hemiarthroplasty s/p left proximal humerus fx doing well. pain controlled. has not been out of bed yet Objective Vitals Vital Signs Date Time Temp Pulse Resp B/P Pulse Ox O2 Delivery O2 Flow Rate FiO2 11/09/16 00:15 97.7 88 20 140/65 92 11/08/16 21:30 98.1 82 20 153/64 91 11/08/16 16:45 98.4 79 16 157/67 98 Nasal Cannula 2 11/08/16 16:15 78 16 157/69 98 Nasal Cannula 2 11/08/16 15:45 78 16 146/65 97 Nasal Cannula 2 11/08/16 15:30 93 16 200/81 97 Nasal Cannula 2 11/08/16 15:15 105 16 187/97 97 Nasal Cannula 2 11/08/16 15:00 84 16 178/75 97 Nasal Cannula 2 11/08/16 14:45 98.5 89 15 152/66 97 Nasal Cannula 2 11/08/16 09:02 98.3 80 17 147/60 91 I/O 11/08/16 11/08/16 11/08/16 11/09/16 11/09/16 11/09/16 06:59 14:59 22:59 06:59 14:59 22:59 Intake Total 1250 ml 500 ml Output Total 150 ml 785 ml Balance 1100 ml -285 ml Intake Oral 300 ml IV Total 200 ml Other 1250 ml Output Urine Total 0 ml 775 ml Drainage Total 10 ml Estimated Blood Loss 150 ml # Voids 2 # Bowel Movements 0 Result Diagram: 11/08/16 0916 11/08/16 0916 Imaging Last 24 hours Impressions Humerus X-Ray 11/07/165 Signed Impressions: Service Date/Time: Monday, November 07, 2016 15:38 - CONCLUSION: Acute comminuted fracture involving the left humeral head and neck. Blaise Suarez MD Shoulder X-Ray 11/07/161447 Signed Impressions: Service Date/Time: Monday, November 07, 2016 15:35 - CONCLUSION: Acute comminuted fracture involving the left humeral head and neck. Blaise Suarez MD Pelvis X-Ray 11/07/161447 Signed Impressions: Service Date/Time: Monday, November 07, 2016 15:29 - CONCLUSION: Left femoral neck fracture. Darrian Sinclair Jr., MD Femur X-Ray 11/07/161447 Signed Impressions: Service Date/Time: Monday, November 07, 2016 15:30 - CONCLUSION: Acute subcapital fracture involving the left proximal femur. Blaise Suarez MD Chest X-Ray 11/07/168 Signed Impressions: Service Date/Time: Monday, November 07, 2016 15:33 - CONCLUSION: 1. Left humeral neck fracture. 2. No acute intrathoracic process. 3. Tips shunt. Darrian Sinclair Jr., MD Objective Remarks LLE: dressings clean and dry. +drain. +CKS. NVI LUE: +sling. full sensation median/ulnar nerve. good extension of wrist/fingers. Assessment & Plan Assessment and Plan 1) Left proximal humerus fracture minimally displaced - nonop -NWB -maintain sling at all times -will recheck xrays in 10-14 days 2) Left femoral neck fracture s/p Bipolar hemiarthroplasty - POD 1 -WBAT -posterior hip precautions -CKS while in bed. remove for PT and when out of bed -DC drain POD 2 with dressing change -Daily dressing changes POD 2 with primapore. begin using xeroform POD 10 -CM for rehab vs home with [facility] -f/u jenni Bermudez or SHAMAR in 2 weeks Rj Hui Nov 09, 2016 07:26
[2016-11-09] MEDS ORDERED: VITA2000 PO (07:27)
[2016-11-09] MEDS ORDERED: HYDR-3580 PO (07:27)
[2016-11-09] MEDS ORDERED: ERGO1CAP30 PO (07:27)
[2016-11-09] MEDS ORDERED: XARE10TA PO (07:27)
[2016-11-09] MEDS ORDERED: CALCTAB19 PO (07:27)
[2016-11-09] MEDS ORDERED: WALKER/FOLDING1 MIS (07:28)
[2016-11-09 08:09] VITALS: BP 138/58; PULSE 89; RESP 18; TEMP 99.8; O2SAT 81
[2016-11-09 08:56] LABS: AUTOMATED NEUTROPHIL # 6.1 TH/MM3 (1.8-7.7); BASOPHIL # 0.1 TH/MM3 (0-0.2); BASOPHIL % 0.8 % (0.0-2.0); EOSINOPHIL # 0.2 TH/MM3 (0-0.4); EOSINOPHIL % 2.6 % (0.0-4.0); HEMATOCRIT 33.7 % (35.0-46.0); LYMPH % 10.1 % (9.0-44.0); LYMPHOCYTE # 0.8 TH/MM3 (1.0-4.8); MEAN CELL VOLUME 84.4 FL (80.0-100.0); MEAN CORPUSCULAR HEMOGLOBIN 27.6 PG (27.0-34.0); MEAN CORPUSCULAR HGB CONC 32.7 % (32.0-36.0); MONO % 13.1 % (0.0-8.0); NEUT % 73.4 % (16.0-70.0); PLATELET COUNT 104 TH/MM3 (150-450); RED BLOOD COUNT 3.99 MIL/MM3 (4.00-5.30); RED CELL DISTRIBUTION WIDTH 27.7 % (11.6-17.2); WHITE BLOOD COUNT 8.3 TH/MM3 (4.0-11.0)
[2016-11-09] MEDS: SODIUM CHLORIDE 0.9% FLUSH 5 ML FLUSH IVF SCH ×2 (09:00→21:00)
[2016-11-09 09:06] LABS: HEMO FLAGS AUTO DIFF
[2016-11-09] MEDS: RIFAXIMIN 550 MG TAB PO SCH (09:16)
[2016-11-09] MEDS: CALCITRIOL 0.25 MCG CAP PO SCH (09:16)
[2016-11-09] MEDS: PANTOPRAZOLE SOD 40 MG DELAYED RELEASE TAB PO SCH (09:16)
[2016-11-09 09:21] LABS: ANION GAP 9 MEQ/L (5-15); AST (GOT) 57 U/L (15-37); BICARBONATE 22.1 MEQ/L (21.0-32.0); BLOOD UREA NITROGEN 37 MG/DL (7-18); CHLORIDE 104 MEQ/L (98-107); GLOMERULAR FILTRATION RATE 35 ML/MIN (>89); POTASSIUM 4.9 MEQ/L (3.5-5.1); SODIUM (NA) 135 MEQ/L (136-145)
[2016-11-09 09:23] LABS: ALT (GPT) 25 U/L (10-53)
[2016-11-09 09:25] LABS: ALKALINE PHOSPHATASE 122 U/L (45-117); TOTAL BILIRUBIN ADULT 1.4 MG/DL (0.2-1.0)
[2016-11-09 09:54] LABS: OVALOCYTES 1+ (NORMAL); PLATELET ESTIMATE SMEAR LOW (NORMAL); PLATELET MORPHOLOGY NORMAL (NORMAL); SCAN/DIFF AUTO DIFF CONFIRMED; SPHEROCYTES 1+ (NORMAL)
[2016-11-09 12:46] VITALS: BP_SYST 56; PULSE 80; RESP 20; TEMP 98.5; O2SAT 95
[2016-11-09] MEDS: SODIUM CHLOR 0.9% 1000 ML INJ 1,000 ML IV SCH (13:09)
[2016-11-09] MEDS: ENOXAPARIN SODIUM 30 MG/0.3 ML SYRINGE SQ SCH (14:42)
[2016-11-09] MEDS ORDERED: LACTULOSE SYRUP 20 GM/30 ML CUP PO PRN (15:15)
[2016-11-09] MEDS ORDERED: SENNOSIDES 8.6 MG TAB PO PRN (15:15)
[2016-11-09] MEDS: diphenhydrAMINE HCL 25 MG CAP PO PRN (15:15)
--- NOTE | 2016-11-09 15:19 | HHI.PR ---
Subjective Remarks Follow-up left hip injury. Complaining of itching denies shortness of breath. She is passing gas no BM. Discussed with RN Objective Vitals Vital Signs Date Time Temp Pulse Resp B/P Pulse Ox O2 Delivery O2 Flow Rate FiO2 11/09/16 12:46 98.5 80 20 56/ 95 11/09/16 08:09 99.8 89 18 138/58 81 11/09/16 05:00 98.1 86 21 145/62 93 11/09/16 00:15 97.7 88 20 140/65 92 11/08/16 21:30 98.1 82 20 153/64 91 11/08/16 16:45 98.4 79 16 157/67 98 Nasal Cannula 2 11/08/16 16:15 78 16 157/69 98 Nasal Cannula 2 11/08/16 15:45 78 16 146/65 97 Nasal Cannula 2 11/08/16 15:30 93 16 200/81 97 Nasal Cannula 2 11/08/16 15:15 105 16 187/97 97 Nasal Cannula 2 I/O 11/08/16 11/08/16 11/08/16 11/09/16 11/09/16 11/09/16 07:00 15:00 23:00 07:00 15:00 23:00 Intake Total 1250 ml 500 ml 700 ml Output Total 150 ml 785 ml 600 ml 30 ml Balance 1100 ml -285 ml 100 ml -30 ml Intake Oral 300 ml 700 ml IV Total 200 ml Other 1250 ml Output Urine Total 0 ml 775 ml 600 ml Drainage Total 10 ml 30 ml Estimated Blood Loss 150 ml # Voids 2 # Bowel Movements 0 0 Result Diagram: 11/09/16 0704 11/09/16 0704 Imaging Last Impressions Hip and Pelvis X-Ray 11/08/16 1416 Signed Impressions: Service Date/Time: Tuesday, November 08, 2016 14:54 - CONCLUSION: Left hip prosthesis in good position. Darrian Sinclair Jr., MD Humerus X-Ray 11/07/16 4260 Signed Impressions: Service Date/Time: Monday, November 07, 2016 15:38 - CONCLUSION: Acute comminuted fracture involving the left humeral head and neck. Blaies Suarez MD Shoulder X-Ray 11/07/16 1448 Signed Impressions: Service Date/Time: Monday, November 07, 2016 15:35 - CONCLUSION: Acute comminuted fracture involving the left humeral head and neck. Blaise Suarez MD Pelvis X-Ray 11/07/16 144 Signed Impressions: Service Date/Time: Monday, November 07, 2016 15:29 - CONCLUSION: Left femoral neck fracture. Darrian Sinclair Jr., MD Femur X-Ray 11/07/168 Signed Impressions: Service Date/Time: Monday, November 07, 2016 15:30 - CONCLUSION: Acute subcapital fracture involving the left proximal femur. Blaise Suarez MD Chest X-Ray 11/07/161447 Signed Impressions: Service Date/Time: Monday, November 07, 2016 15:33 - CONCLUSION: 1. Left humeral neck fracture. 2. No acute intrathoracic process. 3. Tips shunt. Darrian Sinclair Jr., MD Objective Remarks Well-developed, obese in no distress Skin: Warm no rashes Lungs are clear equal and responsive Regular rate and rhythm with systolic murmur best heard at left sternal border Abdomen soft nontender extremities . CKS left lower extremity tender left hip. Left upper extremity in a sling. Neurovascularly intact Alert and oriented nonfocal Procedures Left hip hemiarthroplasty A/P Problem List: (1) Fracture of femoral neck, left ICD Code: S72.002A Status: Acute (2) Left humeral fracture ICD Code: S42.302A Status: Acute (3) ARF (acute renal failure) ICD Code: N17.9 Status: Acute (4) Hypokalemia ICD Code: E87.6 Status: Acute (5) DM (diabetes mellitus) ICD Code: E11.9 Status: Acute Assessment and Plan 71-year-old female with Left femoral neck fracture status post repair Left humeral neck fracture. Conservative management per orthopedic surgery Pelvic x-ray and chest x-ray noted a review by me with finding of both left femoral neck fracture and left humeral neck fracture Continue postoperative care with wound care, incentive spirometry Parenteral pain management with IV morphine and Lortab, antiemetic when necessary PT consulted Acute renal failure. CK not elevated. Worse. Repeat BMP and mag in the morning Prerenal secondary to dehydration Gentle IV fluid hydrations, and avoid all nephrotoxic drugs and monitor BUN and creatinine. Hold Bumex and lisinopril for now Hypokalemia Replaced Diabetes type 2 Hyperglycemic 2/2 above. Check A!C. Continue sliding scale insulin Pruritus likely med related. No respiratory complaints. Benadryl as needed. We'll continue to monitor consider switching Lortab to Dilaudid or Percocet Postoperative anemia secondary to acute blood loss but hemodynamically stable. Monitor repeat blood counts in the morning Chronic medical conditions of hypertension, GERD and hypothyroidism. Stable continue outpatient medications as appropriate DVT prophylaxis: Bilateral SCDs. Lovenox Discharge Planning Rehabilitation versus home health care per orthopedic surgery. Scott consulted Yoandy Scott MD Nov 09, 2016 15:19
[2016-11-09 16:05] VITALS: BP 138/60; PULSE 91; RESP 20; TEMP 98.1; O2SAT 100
[2016-11-09 18:29] LABS: HEMOGLOBIN A1b 0.8 %; HEMOGLOBIN Ao 81.5 %; HEMOGLOBIN F 1.2 %; HEMOGLOBIN LA1C 2.7 %; HEMOGLOBIN P3 4.2 %
[2016-11-09 20:00] VITALS: BP 143/58; PULSE 91; RESP 20; TEMP 99.7; O2SAT 93
[2016-11-09] MEDS: DOCUSATE SODIUM 50 MG/SENNA 8.6 MG TAB PO SCH (21:11)
[2016-11-10] VITALS: BP 147/63; PULSE 91; RESP 20; TEMP 100.8; O2SAT 93
[2016-11-10] MEDS: SODIUM CHLOR 0.9% 1000 ML INJ 1,000 ML IV SCH ×2 (00:35→17:15)
[2016-11-10 04:00] VITALS: BP 139/59; PULSE 80; RESP 20; TEMP 98.1; O2SAT 94
[2016-11-10] MEDS: LEVOTHYROXINE SODIUM 100 MCG TAB PO SCH (06:22)
--- NOTE | 2016-11-10 06:48 | PD.ORT.PN ---
Subjective Subjective Remarks Dx: Nonoperative left proximal humerus fracture, left hip hemiarthroplasty for femoral neck fracture Patient is awake and alert. She complains of mild left shoulder pain. If she moves her shoulder the pain increases significantly. She is relatively comfortable at rest. She has Minimal hip pain. She was able to get out of bed to a chair yesterday. Objective Vitals Vital Signs Date Time Temp Pulse Resp B/P Pulse Ox O2 Delivery O2 Flow Rate FiO2 11/10/16 04:00 98.1 80 20 139/59 94 11/10/16 00:00 100.8 91 20 147/63 93 11/09/16 20:00 99.7 91 20 143/58 93 11/09/16 16:05 98.1 91 20 138/60 100 11/09/16 12:46 98.5 80 20 56/ 95 11/09/16 08:09 99.8 89 18 138/58 81 I/O 11/09/16 11/09/16 11/09/16 11/10/16 11/10/16 11/10/16 07:00 15:00 23:00 07:00 15:00 23:00 Intake Total 700 ml 1080 ml 420 ml Output Total 600 ml 30 ml 25 ml 937 ml Balance 100 ml -30 ml 1055 ml -517 ml Intake Oral 700 ml 1080 ml 420 ml Output Urine Total 600 ml 925 ml Drainage Total 30 ml 25 ml 12 ml # Bowel Movements 0 Result Diagram: 11/09/16 0704 11/09/16 0704 Imaging Last 24 hours Impressions Humerus X-Ray 11/07/16 1455 Signed Impressions: Service Date/Time: Monday, November 07, 2016 15:38 - CONCLUSION: Acute comminuted fracture involving the left humeral head and neck. Blaise Suarez MD Shoulder X-Ray 11/07/16 144 Signed Impressions: Service Date/Time: Monday, November 07, 2016 15:35 - CONCLUSION: Acute comminuted fracture involving the left humeral head and neck. Blaise Suarez MD Pelvis X-Ray 11/07/16 1448 Signed Impressions: Service Date/Time: Monday, November 07, 2016 15:29 - CONCLUSION: Left femoral neck fracture. Darrian Sinclair Jr., MD Femur X-Ray 11/07/16 144 Signed Impressions: Service Date/Time: Monday, November 07, 2016 15:30 - CONCLUSION: Acute subcapital fracture involving the left proximal femur. Blaise Suarez MD Chest X-Ray 11/07/16 1448 Signed Impressions: Service Date/Time: Monday, November 07, 2016 15:33 - CONCLUSION: 1. Left humeral neck fracture. 2. No acute intrathoracic process. 3. Tips shunt. Darrian Sinclair Jr., MD Objective Remarks LUE: +sling. full sensation median/ulnar/radial nerve. No pain with flexion or extension of wrist/fingers. Palpable radial pulse LLE: dressings clean and dry. +drain. +CKS. NVI Assessment & Plan Assessment and Plan 1) Left proximal humerus fracture minimally displaced - continue nonop treatment -NWB -maintain sling at all times -will recheck xrays in 10-14 days 2) Left femoral neck fracture s/p Bipolar hemiarthroplasty - POD 1 -WBAT -posterior hip precautions -CKS while in bed. remove for PT and when out of bed -DC drain POD 2 with dressing change -Daily dressing changes POD 2 with primapore. begin using xeroform POD 10 -CM for rehab -f/u wt Aidan or SHAMAR in 2 weeks Vazquez Bermudez MD Nov 10, 2016 06:48
[2016-11-10] MEDS: INSULIN ASPART SUPPLEMENTAL SCALE SQ SCH ×4 (06:57→21:00)
[2016-11-10 08:06] LABS: AUTOMATED NEUTROPHIL # 5.4 TH/MM3 (1.8-7.7); BASOPHIL # 0.1 TH/MM3 (0-0.2); BASOPHIL % 0.9 % (0.0-2.0); EOSINOPHIL # 0.3 TH/MM3 (0-0.4); EOSINOPHIL % 3.4 % (0.0-4.0); HEMATOCRIT 31.5 % (35.0-46.0); LYMPH % 17.8 % (9.0-44.0); LYMPHOCYTE # 1.5 TH/MM3 (1.0-4.8); MEAN CELL VOLUME 83.4 FL (80.0-100.0); MEAN CORPUSCULAR HGB CONC 33.5 % (32.0-36.0); MONO % 13.5 % (0.0-8.0); NEUT % 64.4 % (16.0-70.0); PLATELET COUNT 98 TH/MM3 (150-450); RED BLOOD COUNT 3.77 MIL/MM3 (4.00-5.30); RED CELL DISTRIBUTION WIDTH 27.7 % (11.6-17.2); WHITE BLOOD COUNT 8.3 TH/MM3 (4.0-11.0)
[2016-11-10 08:17] LABS: HEMO FLAGS AUTO DIFF
[2016-11-10 08:23] VITALS: BP 160/66; PULSE 82; RESP 20; TEMP 98.1; O2SAT 95
[2016-11-10 08:46] LABS: BICARBONATE 22.5 MEQ/L (21.0-32.0); MAGNESIUM 2.2 MG/DL (1.5-2.5); POTASSIUM 4.5 MEQ/L (3.5-5.1)
[2016-11-10] MEDS: PANTOPRAZOLE SOD 40 MG DELAYED RELEASE TAB PO SCH (09:01)
[2016-11-10] MEDS: SODIUM CHLORIDE 0.9% FLUSH 5 ML FLUSH IVF SCH ×2 (09:02→21:00)
[2016-11-10] MEDS: CALCITRIOL 0.25 MCG CAP PO SCH (09:02)
[2016-11-10] MEDS: CHOLECALCIFEROL (VIT D3) 5000 UNIT CAP PO SCH (09:02)
[2016-11-10] MEDS: RIFAXIMIN 550 MG TAB PO SCH (09:02)
[2016-11-10] MEDS: DOCUSATE SODIUM 50 MG/SENNA 8.6 MG TAB PO SCH ×2 (09:02→21:00)
[2016-11-10] MEDS: ACETAMINOPHEN/HYDROcodone 325 MG/7.5 MG TAB PO PRN ×4 (09:21→23:07)
[2016-11-10 10:44] LABS: OVALOCYTES 1+ (NORMAL); PLATELET ESTIMATE SMEAR LOW (NORMAL); PLATELET MORPHOLOGY NORMAL (NORMAL); SCAN/DIFF AUTO DIFF CONFIRMED
[2016-11-10 12:01] VITALS: BP 132/60; PULSE 82; RESP 18; TEMP 98.7; O2SAT 93
[2016-11-10] MEDS: ENOXAPARIN SODIUM 30 MG/0.3 ML SYRINGE SQ SCH (13:02)
--- NOTE | 2016-11-10 13:56 | HHI.PR ---
Subjective Remarks Pain control. She did have a fever overnight but no signs of infection on blood work this morning. No new complaints today. Objective Vital Signs Date Time Temp Pulse Resp B/P Pulse Ox O2 Delivery O2 Flow Rate FiO2 11/10/16 12:01 98.7 82 18 132/60 93 11/10/16 08:23 98.1 82 20 160/66 95 11/10/16 04:00 98.1 80 20 139/59 94 11/10/16 00:00 100.8 91 20 147/63 93 11/09/16 20:00 99.7 91 20 143/58 93 11/09/16 16:05 98.1 91 20 138/60 100 I/O 11/09/16 11/09/16 11/09/16 11/10/16 11/10/16 11/10/16 07:00 15:00 23:00 07:00 15:00 23:00 Intake Total 700 ml 1080 ml 420 ml Output Total 600 ml 30 ml 25 ml 937 ml 250 ml Balance 100 ml -30 ml 1055 ml -517 ml -250 ml Intake Oral 700 ml 1080 ml 420 ml Output Urine Total 600 ml 925 ml 250 ml Drainage Total 30 ml 25 ml 12 ml # Bowel Movements 0 Result Diagram: 11/10/16 0647 11/10/16 0647 Objective Remarks GENERAL: NAD, A&Ox3 HEAD: Normocephalic. NECK: Supple, trachea midline. No lymphadenopathy. EYES: No scleral icterus. No injection or drainage. CARDIOVASCULAR: Regular rate and rhythm without murmurs, gallops, or rubs. RESPIRATORY: Breath sounds equal bilaterally. No accessory muscle use. GASTROINTESTINAL: Abdomen soft, non-tender, nondistended. MUSCULOSKELETAL: No cyanosis, or edema. Left arm in sling. Hip has dressing over wound. SKIN: Warm and dry. NEURO: No focal neurological deficitis. A/P Problem List: (1) Hypokalemia ICD Code: E87.6 (2) ARF (acute renal failure) ICD Code: N17.9 (3) DM (diabetes mellitus) ICD Code: E11.9 (4) Fracture of femoral neck, left ICD Code: S72.002A (5) Left humeral fracture ICD Code: S42.302A Assessment and Plan Assessment and Plan 71-year-old female admitted with fall which resulted in a left femoral neck fracture and left humeral neck fracture. Left femoral neck fracture status post repair Left humeral neck fracture. (Conservative management) Continue PT Orthopedic surgery following Continue pain treatments Plan for discharge to inpatient rehabilitation Fever May be secondary to atelectasis No significant white blood cell count this morning Follow for recurrence of the fever Check urinalysis Follow clinically for any signs of infection including recurrence of fever Acute kidney injury Follow BMP Etiology may be secondary to dehydration or related to musculoskeletal injuries IV hydration Follow renal function Avoid nephrotoxic drugs Hypokalemia Replace as needed Follow potassium levels Diabetes type 2 Follow blood sugars Insulin sliding scale Diabetic diet Pruritus Resolved Follow for recurrence Anemia Postop Blood counts stabilized Follow CBC Hypertension Hypothyroidism Gastroesophageal reflux disease All these conditions are stable Continue baseline treatments Continue to monitor clinically DVT prophylaxis Bilateral SCDs. Lovenox Discharge Planning Inpatient rehabilitation planned Rakesh Levy MD Nov 10, 2016 13:56
[2016-11-10 16:33] VITALS: BP 121/50; PULSE 80; RESP 20; TEMP 98.2; O2SAT 97
[2016-11-10 21:02] VITALS: BP 160/67; PULSE 88; RESP 20; TEMP 98.3; O2SAT 93
[2016-11-11 00:58] VITALS: BP 136/58; PULSE 79; RESP 20; TEMP 98.5; O2SAT 97
[2016-11-11] MEDS: diphenhydrAMINE HCL 25 MG CAP PO PRN (04:42)
[2016-11-11] MEDS: LEVOTHYROXINE SODIUM 100 MCG TAB PO SCH (04:44)
[2016-11-11 05:34] VITALS: BP 122/65; PULSE 82; RESP 20; TEMP 98.4; O2SAT 93
[2016-11-11] MEDS: INSULIN ASPART SUPPLEMENTAL SCALE SQ SCH (06:22)
[2016-11-11 08:00] VITALS: BP 136/63; PULSE 79; RESP 18; TEMP 98.5; O2SAT 95
--- NOTE | 2016-11-11 08:22 | PD.ORT.PN ---
Subjective Subjective Remarks POD 3 s/p Left Hip Hemiarthroplasty s/p left proximal humerus fx doing well. pain controlled. out of bed with therapy and states doign well Objective Vitals Vital Signs Date Time Temp Pulse Resp B/P Pulse Ox O2 Delivery O2 Flow Rate FiO2 11/11/16 05:34 98.4 82 20 122/65 93 11/11/16 00:58 98.5 79 20 136/58 97 11/10/16 21:02 98.3 88 20 160/67 93 11/10/16 16:33 98.2 80 20 121/50 97 11/10/16 12:01 98.7 82 18 132/60 93 11/10/16 08:23 98.1 82 20 160/66 95 I/O 11/10/16 11/10/16 11/10/16 11/11/16 11/11/16 11/11/16 06:59 14:59 22:59 06:59 14:59 22:59 Intake Total 420 ml Output Total 937 ml 270 ml Balance -517 ml -270 ml Intake Oral 420 ml Output Urine Total 925 ml 250 ml Drainage Total 12 ml 20 ml # Voids 2 Result Diagram: 11/10/16 0647 11/10/16 0647 Imaging Last 24 hours Impressions Humerus X-Ray 11/07/161454 Signed Impressions: Service Date/Time: Monday, November 07, 2016 15:38 - CONCLUSION: Acute comminuted fracture involving the left humeral head and neck. Blaise Suarez MD Shoulder X-Ray 11/07/161447 Signed Impressions: Service Date/Time: Monday, November 07, 2016 15:35 - CONCLUSION: Acute comminuted fracture involving the left humeral head and neck. Blaise Suarez MD Pelvis X-Ray 11/07/161447 Signed Impressions: Service Date/Time: Monday, November 07, 2016 15:29 - CONCLUSION: Left femoral neck fracture. Darrian Sinclair Jr., MD Femur X-Ray 11/07/161447 Signed Impressions: Service Date/Time: Monday, November 07, 2016 15:30 - CONCLUSION: Acute subcapital fracture involving the left proximal femur. Blaise Suarez MD Chest X-Ray 11/07/161447 Signed Impressions: Service Date/Time: Monday, November 07, 2016 15:33 - CONCLUSION: 1. Left humeral neck fracture. 2. No acute intrathoracic process. 3. Tips shunt. Darrian Sinclair Jr., MD Objective Remarks LUE: +sling. full sensation median/ulnar/radial nerve. No pain with flexion or extension of wrist/fingers. Palpable radial pulse LLE: dressings clean and dry. +drain. +CKS. NVI Assessment & Plan Assessment and Plan 1) Left proximal humerus fracture minimally displaced - continue nonop treatment -NWB -maintain sling at all times -will recheck xrays in 10-14 days 2) Left femoral neck fracture s/p Bipolar hemiarthroplasty - POD 4 -WBAT -posterior hip precautions -CKS while in bed. remove for PT and when out of bed -Daily dressing changes POD 2 with primapore. begin using xeroform POD 10 -CM for rehab -ortho cleared for DC to rehab -f/u wtfranklin Bermudez or SHAMAR in 2 weeks Rj Hui Nov 11, 2016 08:22
[2016-11-11] MEDS: DOCUSATE SODIUM 50 MG/SENNA 8.6 MG TAB PO SCH (09:00)
[2016-11-11 09:01] LABS: AUTOMATED NEUTROPHIL # 4.1 TH/MM3 (1.8-7.7); BASOPHIL # 0.1 TH/MM3 (0-0.2); BASOPHIL % 0.8 % (0.0-2.0); EOSINOPHIL # 0.3 TH/MM3 (0-0.4); EOSINOPHIL % 5.3 % (0.0-4.0); HEMATOCRIT 31.4 % (35.0-46.0); LYMPH % 16.8 % (9.0-44.0); LYMPHOCYTE # 1.1 TH/MM3 (1.0-4.8); MEAN CELL VOLUME 85.2 FL (80.0-100.0); MEAN CORPUSCULAR HEMOGLOBIN 27.3 PG (27.0-34.0); MEAN CORPUSCULAR HGB CONC 32.1 % (32.0-36.0); MONO % 12.2 % (0.0-8.0); NEUT % 64.9 % (16.0-70.0); PLATELET COUNT 126 TH/MM3 (150-450); RED BLOOD COUNT 3.68 MIL/MM3 (4.00-5.30); WHITE BLOOD COUNT 6.3 TH/MM3 (4.0-11.0)
[2016-11-11] MEDS: PANTOPRAZOLE SOD 40 MG DELAYED RELEASE TAB PO SCH (09:03)
[2016-11-11] MEDS: RIFAXIMIN 550 MG TAB PO SCH (09:03)
[2016-11-11] MEDS: CALCITRIOL 0.25 MCG CAP PO SCH (09:03)
[2016-11-11] MEDS: CHOLECALCIFEROL (VIT D3) 5000 UNIT CAP PO SCH (09:03)
[2016-11-11 09:08] LABS: HEMO FLAGS AUTO DIFF
[2016-11-11 09:26] LABS: ANION GAP 4 MEQ/L (5-15); AST (GOT) 33 U/L (15-37); BICARBONATE 25.7 MEQ/L (21.0-32.0); BLOOD UREA NITROGEN 44 MG/DL (7-18); CHLORIDE 107 MEQ/L (98-107); GLOMERULAR FILTRATION RATE 43 ML/MIN (>89); SODIUM (NA) 137 MEQ/L (136-145)
[2016-11-11 09:27] LABS: ALT (GPT) 15 U/L (10-53)
[2016-11-11 09:29] LABS: ALKALINE PHOSPHATASE 103 U/L (45-117); TOTAL BILIRUBIN ADULT 1.2 MG/DL (0.2-1.0)
[2016-11-11] MEDS ORDERED: SENN8.6T15 PO (09:30)
[2016-11-11] MEDS ORDERED: COLA100C PO (09:30)
[2016-11-11] MEDS ORDERED: REST15CA PO (09:30)
--- NOTE | 2016-11-11 09:33 | HHI.DS ---
Discharge Summary Admission Date Nov 07, 2016 at 16:57 Discharge Date: Nov 11, 2016 Admitting Diagnosis left humeral fracture and hip fracture (1) Fracture of femoral neck, left ICD Code: S72.002A Diagnosis: Principal (2) Left humeral fracture ICD Code: S42.302A Diagnosis: Principal (3) ARF (acute renal failure) ICD Code: N17.9 Diagnosis: Secondary (4) Hypokalemia ICD Code: E87.6 Diagnosis: Secondary (5) DM (diabetes mellitus) ICD Code: E11.9 Diagnosis: Secondary Procedures Left hip hemiarthroplasty Brief History - From Admission 71-year-old female with a history of diabetes type 2, presented to the ED for evaluation of an acute onset of left hip and left shoulder pain status post mechanical fall. 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 In order to avoid sneezing in the face of another patient ,she turned around on her left side however in the process, she lost her balance and felt on her left side hitting her left shoulder and left hip without any trauma to her head or any associated loss of consciousness. She automatically felt severe pain to will left hip and left shoulder which were both repeated 8/10 in intensity. She has no chest pain or shortness of breath. CBC/BMP: 11/11/16 0745 11/11/16 0754 Significant Findings Laboratory Tests Test 11/09/16 11/10/16 11/11/16 11/11/16 07:04 06:47 07:45 07:54 Red Blood Count 3.99 MIL/MM3 3.77 MIL/MM3 3.68 MIL/MM3 (4.00-5.30) (4.00-5.30) (4.00-5.30) Hemoglobin 11.0 GM/DL 10.6 GM/DL 10.1 GM/DL (11.6-15.3) (11.6-15.3) (11.6-15.3) Hematocrit 33.7 % 31.5 % 31.4 % (35.0-46.0) (35.0-46.0) (35.0-46.0) Red Cell Distribution Width 27.7 % 27.7 % 28.0 % (11.6-17.2) (11.6-17.2) (11.6-17.2) Platelet Count 104 TH/MM3 98 TH/MM3 126 TH/MM3 (150-450) (150-450) (150-450) Neutrophils (%) (Auto) 73.4 % (16.0-70.0) Monocytes (%) (Auto) 13.1 % 13.5 % 12.2 % (0.0-8.0) (0.0-8.0) (0.0-8.0) Lymphocytes # (Auto) 0.8 TH/MM3 (1.0-4.8) Monocytes # (Auto) 1.1 TH/MM3 1.1 TH/MM3 (0-0.9) (0-0.9) Platelet Estimate LOW (NORMAL) LOW (NORMAL) Spherocytes 1+ (NORMAL) Ovalocytes 1+ (NORMAL) 1+ (NORMAL) Sodium Level 135 MEQ/L 134 MEQ/L (136-145) (136-145) Blood Urea Nitrogen 37 MG/DL (7-18) 39 MG/DL (7-18) 44 MG/DL (7-18) Creatinine 1.46 MG/DL 1.22 MG/DL 1.23 MG/DL (0.50-1.00) (0.50-1.00) (0.50-1.00) Estimat Glomerular Filtration 35 ML/MIN (>89) 44 ML/MIN (>89) 43 ML/MIN (>89) Rate Random Glucose 237 MG/DL 184 MG/DL 156 MG/DL (74-106) (74-106) (74-106) Hemoglobin A1c 8.5 % (4.3-6.0) Calcium Level 8.3 MG/DL 8.4 MG/DL (8.5-10.1) (8.5-10.1) Total Bilirubin 1.4 MG/DL 1.2 MG/DL (0.2-1.0) (0.2-1.0) Aspartate Amino Transf 57 U/L (15-37) (AST/SGOT) Alkaline Phosphatase 122 U/L (45-117) Albumin 2.1 GM/DL 1.8 GM/DL (3.4-5.0) (3.4-5.0) Eosinophils (%) (Auto) 5.3 % (0.0-4.0) Anion Gap 4 MEQ/L (5-15) PE at Discharge GENERAL: NAD, A&Ox3 HEAD: Normocephalic. NECK: Supple, trachea midline. No lymphadenopathy. EYES: No scleral icterus. No injection or drainage. CARDIOVASCULAR: Regular rate and rhythm without murmurs, gallops, or rubs. RESPIRATORY: Breath sounds equal bilaterally. No accessory muscle use. GASTROINTESTINAL: Abdomen soft, non-tender, nondistended. MUSCULOSKELETAL: No cyanosis, or edema. Left arm in splint, left leg has bandage/dressing. SKIN: Warm and dry. NEURO: No focal neurological deficitis. Hospital Course Mrs. Carney is a 71-year-old female. She was admitted secondary to fractures after fall. She fractured her left humerus of the neck and her left femur neck. She had surgical repair of the left femur. Injuries upper and lower extremities makes rehabilitation slightly more difficult for her. She is working well physical therapy though her course is difficult. She will to inpatient rehabilitation at this point is medically cleared for discharge from the hospital today. Pt Condition on Discharge: Stable Discharge Disposition: Rehab Inpatient Discharge Time: <= 30 minutes Discharge Instructions DIET: Follow Instructions for: As Tolerated, No Restrictions Activities you can perform: Regular-No Restrictions Follow up Referrals: Orthopedics - 11/23/16 @ [facility] with Vazquez Bermudez MD PCP Follow-up - 1 Week New Medications: Calcium Carbonate-Vitamin D (Calcium 600+D 200) 600-200 Mg-Unit Tab 1 TAB PO BID Nutritional Supplement Days 30 Ref 0 TAB Cholecalciferol (Vitamin D3) 2,000 Unit Cap 2000 UNITS PO DAILY Nutritional Supplement #56 Ref 0 CAP Docusate Sodium (Colace) 100 Mg Capsule 100 MG PO BID Constipation #60 TAB Ergocalciferol (Ergocalciferol) 50,000 Unit Cap 34305 UNITS PO Q7D Nutritional Supplement #56 CAP Hydrocodone-Acetaminophen (Hydrocodone-Acetaminophen) 7.5-325 mg Tab 1 TAB PO Q4H PRN PAIN #60 Ref 0 TAB Rivaroxaban (Xarelto) 10 Mg Tab 10 MG PO DAILY Blood Clot Prevention #14 Ref 0 TAB Walker/Folding Cruz (Walker/Folding Cruz) 1 Mis Mis 1 EA .ROUTE DIRECTED #1 EA Sennosides (Senna Lax) 8.6 Mg Tab 17.2 MG PO Q12H PRN MODERATE - SEVERE CONSTIPATION #30 TAB Temazepam (Restoril) 15 Mg Cap 15 MG PO HS PRN INSOMNIA #30 CAP Continued Medications: Bumetanide (Bumetanide) 2 Mg Tab 2 MG PO DAILY Ref 0 TAB Calcitriol (Calcitriol) 0.25 Mcg Cap 0.25 MCG PO DAILY Calcium Supplement #30 Ref 0 CAP Folic Acid (Folic Acid) 1 Mg Tablet Insulin Regular (Human) Concentrate Inj (Humulin R U-500 (Concentrate) Inj) 10, 000 Unit/20 Ml Vial 1 UNITS SQ Blood Sugar Management Ref 0 VIAL Levothyroxine (Levothyroxine) 100 Mcg Tab 100 MCG PO DAILY Thyroid #30 Ref 0 TAB Lisinopril (Lisinopril) 20 Mg Tab 20 MG PO DAILY #30 Ref 0 TAB Omeprazole (Omeprazole) 40 Mg Cap 40 MG PO DAILY #30 Ref 0 CAP Rifaximin (Xifaxan) 550 Mg Tab 550 MG PO DAILY Hepatic encephalopathy #60 Ref 0 TAB Rakesh Levy MD Nov 11, 2016 09:33
[2016-11-11] MEDS: ACETAMINOPHEN/HYDROcodone 325 MG/7.5 MG TAB PO PRN (09:51)
[2016-11-11 10:01] LABS: PLATELET ESTIMATE SMEAR LOW (NORMAL); PLATELET MORPHOLOGY NORMAL (NORMAL); SCAN/DIFF AUTO DIFF CONFIRMED
[2016-11-11 11:19] LABS: BLOOD, URINE NEG (NEG); GLUCOSE,URINE 150 mg/dL (NEG); KETONE, URINE NEG (NEG); NITRITE,URINE NEG (NEG); PH, URINE 5.5 (5.0-8.5); URINE COLOR YELLOW (YELLW/STRAW)
[2016-11-11 11:20] LABS: COMMENT (UR) CULT NOT INDICATED; CULTURE IF INDICATED CULT NOT INDICATED
[2016-11-11 11:25] LABS: BACTERIA, URINE RARE /hpf; SQUAMOUS EPITHELIAL CELL URINE 9 /hpf (0-5)
== END 2016-11-11 13:42 | DRG 470 ==
LOC: NEPE 14:30 → NEDA 16:57 → NEDH 21:15 → N05B 22:53
PROVIDERS: ADMIT Hospitalist; ATTEND Hospitalist
PROC: 0SRS0JA Replacement of Left Hip Joint, Femoral Surface with Synthetic Substitute, Uncemented, Open Approach (ICD-10-PCS; principal; 2016-11-08 13:04)
DX: S72.012A Unspecified intracapsular fracture of left femur, initial encounter for closed fracture (principal); N17.9 Acute kidney failure, unspecified; E11.22 Type 2 diabetes mellitus with diabetic chronic kidney disease; E11.40 Type 2 diabetes mellitus with diabetic neuropathy, unspecified; D62 Acute posthemorrhagic anemia; S42.215A Unspecified nondisplaced fracture of surgical neck of left humerus, initial encounter for closed fracture; E11.65 Type 2 diabetes mellitus with hyperglycemia; E03.9 Hypothyroidism, unspecified; F41.9 Anxiety disorder, unspecified; K21.9 Gastro-esophageal reflux disease without esophagitis; W01.0XXA Fall on same level from slipping, tripping and stumbling without subsequent striking against object, initial encounter; E87.6 Hypokalemia; E86.0 Dehydration; M81.0 Age-related osteoporosis without current pathological fracture; I12.9 Hypertensive chronic kidney disease with stage 1 through stage 4 chronic kidney disease, or unspecified chronic kidney disease; N18.9 Chronic kidney disease, unspecified; L29.8 Other pruritus; R50.9 Fever, unspecified; Z87.891 Personal history of nicotine dependence; Z79.82 Long term (current) use of aspirin; Y92.531 Health care provider office as the place of occurrence of the external cause; Z79.4 Long term (current) use of insulin
CPT/HCPCS: 71010; 72170; 73030; 73060; 73502; 73552; 76937; 80048; 80053; 81001; 82306; 82550; 82948; 83036; 83735; 85025; 85610; 85730; 86850; 86900; 86901; 93005; 96374; 96375; 96376; C1776; J0690; J1200; J1580; J1650; J1815; J2270; J2370; J2405; J2710; J3010; J3370; J7030